=== PATIENT | female | born 1955 | race Caucasian/White ===

== ENCOUNTER 2016-12-02 10:27 | Day surgery (SDC) | payer MEDICAID ==
[~2016-12-02] VITALS: Ht 149.9 cm; Wt 67.6 kg
[~2016-12-02 10:27] MED LIST: ABILIFY10 MG PO; ALDACTONE50 MG PO; DESERYL100 MG PO; ENULOSE10 G/15 ML PO; FISH OIL 1,0001 CA1 PO; FUROSEMIDE20 MG PO; GEODON60 MG PO; GLUCOPHAGE500 MG PO; GLUCOTROL 5 MG T5 MG PO; HYDROCODONE-APA1 TAB PO; INVEGA SUS117 MG/0.7 IM; LANTUS INSULIN10 ML SC; METOPROLOL TART50 MG PO; NORVASC10 MG PO; PRILOSEC20 MG PO; SYNTHROID50 MCG PO; VESICARE5 MG PO; ZESTRIL20 MG PO
[2016-12-02] MEDS ORDERED: GEODON60 MG PO (10:58)
[2016-12-02] MEDS ORDERED: METFORMIN HCL500 M1 PO (10:59)
[2016-12-02] MEDS ORDERED: INVEGA SUS117 MG/0.7 IM (11:01)
[2016-12-02] MEDS ORDERED: LEXAPRO10 MG PO (11:02)
[2016-12-02] MEDS ORDERED: ATIVAN2 MG PO (11:04)
[2016-12-02] MEDS ORDERED: BENADRYL25 MG PO (11:05)
[2016-12-02] MEDS ORDERED: LASIX40 MG PO (11:07)
[2016-12-02] MEDS ORDERED: VESICARE10 MG PO (11:09)
[2016-12-02 11:13] LABS: BASOPHILS 0.2 % (0.0-2.0); EOSINOPHILS 0.7 % (0-7); HEMOGLOBIN 14.2 g/dL (12-16); IMMATURE GRANULOCYTES 0.5 % (0-5); LYMPHOCYTES 14.5 % (15-50); MCH 32.7 pg (26.0-34.0); MCHC 35.5 g/dL (31.0-37.0); MCV 92.2 fL (80.0-100.0); MONOCYTES 11.6 % (2-11); NEUTROPHILS 72.5 % (40-80); RBC 4.34 10x6/uL (4.00-5.40); RDW 12.8 % (11.5-14.5); WBC 5.8 10x3/uL (4.8-10.8)
[2016-12-02 11:16] VITALS: BP 123/61; Ht 149.9 cm; Wt 67.6 kg
[2016-12-02 11:17] LABS: APTT 36.9 SECONDS (22.8-39.4); INR 1.21 (0.85-1.17); PROTIME 15.1 SECONDS (11.6-15.0)
[2016-12-02 11:25] LABS: ALKALINE PHOSPHATASE 173 U/L (46-116); ALT (SGPT) 26 U/L (10-68); BILIRUBIN - TOTAL 0.87 mg/dL (0.2-1.3); CALC OSMOLALITY 249 mosm/kg (275-300); CALCIUM 8.5 mg/dL (8.5-10.1); CARBON DIOXIDE 23.3 mmol/L (21.0-32.0); CHLORIDE - SERUM 91 mmol/L (98-107); CREATININE - SERUM 0.6 mg/dL (0.6-1.3); GLUCOSE 164 mg/dL (74-106); POTASSIUM - SERUM 4.5 mmol/L (3.5-5.1); PROTEIN - SERUM 7.4 g/dL (6.4-8.2); SODIUM 123 mmol/L (136-145); UREA NITROGEN 6 mg/dL (7-18); eGFR NON AFRICAN AMERICAN > 90 mL/min (90-120)
[2016-12-02 11:27] LABS: PLATELET COUNT 118 10x3/uL (130-400)
--- NOTE | 2016-12-08 10:15 | OP ---
PATIENT NAME: FARNAZ LIVE MEDICAL RECORD: [id number] :57 LOCATION:D.OPS ADMISSION DATE: SURGEON: CLAUDIA VALENZUELA DO DATE OF OPERATION: 12/02/2016 PROCEDURE: Colonoscopy with biopsy. SCOPE: Olympus video pediatric colonoscope. MEDICATIONS: Propofol 700 mg IV per anesthesia. INDICATIONS FOR PROCEDURE: Screening colonoscopy with a family history of colon cancer in her mother. FINDINGS: Informed consent was given. The patient was made comfortable with the above medication. After reaching an adequate level of sedation by slow IV push, the patient was placed on her left side. A digital rectal examination was performed and revealed no abnormalities. The scope was then advanced under direct visualization through the rectum to the cecum. This procedure was somewhat difficult as there was some redundancy of the colon, which required counter pressure to prevent looping as well as the prep not being adequate enough to permit a complete well-seen examination. Significant irrigation was performed during the procedure and it is possible that some small polyps could have been missed. There were 2 polyps visualized, which were sessile. The first was in the descending colon and measured approximately 6 mm. It was removed with cold forceps. It was completely retrieved. The second polyp was approximately 6 mm in diameter and was found in the rectum. It was removed with cold forceps as well. These polyps were submitted to pathology. In the cecum, there was also some telangiectasias or ____ malformations. There was a granular and erythematous appearance in the cecum, which was biopsied with cold forceps to rule out colitis. Scope was then withdrawn from the patient. The patient tolerated the procedure well and there were no complications. ESTIMATED BLOOD LOSS: Less than 5 cc. IMPRESSION: 1. 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 2. Granularity and erythema in the cecum, biopsied to rule out colitis. 3. Two sessile polyps, which were removed from the descending colon and rectum with cold forceps. PLAN AND RECOMMENDATIONS: 1. Discharge home when recovery parameters are met. 2. Continue current diet, which should be a low-sodium diet regarding her cirrhosis. 3. Continue current medications. 4. Recall colonoscopy in 3 years based on personal history of polyps in the setting of a family history of colon cancer in her mother. TRANSINT:[id number] Voice Confirmation ID: [id number] DOCUMENT ID: [id number] OPERATIVE REPORT [id number] FARNAZ LIVE NATHAN A DO at 1015 CC: [id number] DICTATION DATE: 12/02/16 1258 TRADESHOW WORKER: 12/02/[address] [facility] 12/02/16 [id number] [place] [address]
== END 2016-12-02 14:30 | disposition home or self-care (01) ==
LOC: D.OPS 10:27
PROVIDERS: Anesthesiology
DX: Z12.11 Encounter for screening for malignant neoplasm of colon (principal); K51.40 Inflammatory polyps of colon without complications; K62.1 Rectal polyp; Q27.33 Arteriovenous malformation of digestive system vessel; Z80.0 Family history of malignant neoplasm of digestive organs

== ENCOUNTER 2016-12-23 09:04 | Emergency (ER) | payer MEDICAID ==
[2016-12-02 11:16] VITALS: BMI 30.1
[~2016-12-23 09:04] MED LIST changes: +ATIVAN2 MG PO; +BENADRYL25 MG PO; +LASIX40 MG PO; +LEXAPRO10 MG PO; +METFORMIN HCL500 M1 PO; +VESICARE10 MG PO
[2016-12-23 09:44] LABS: BASOPHILS 0.2 % (0.0-2.0); EOSINOPHILS 1.3 % (0-7); HEMATOCRIT 40.9 % (36.0-48.0); IMMATURE GRANULOCYTES 0.2 % (0-5); LYMPHOCYTES 13.3 % (15-50); MCH 32.3 pg (26.0-34.0); MCHC 34.2 g/dL (31.0-37.0); MCV 94.2 fL (80.0-100.0); MEAN PLATELET VOLUME 9.9 fL (7.4-10.4); MONOCYTES 12.5 % (2-11); NEUTROPHILS 72.5 % (40-80); PLATELET COUNT 102 10x3/uL (130-400); RBC 4.34 10x6/uL (4.00-5.40); WBC 4.7 10x3/uL (4.8-10.8)
[2016-12-23 09:53] LABS: INR 1.15 (0.85-1.17); PROTIME 14.6 SECONDS (11.6-15.0)
[2016-12-23 09:54] LABS: APTT 35.7 SECONDS (22.8-39.4)
[2016-12-23 09:59] LABS: ALBUMIN 2.8 g/dL (3.4-5.0); ALKALINE PHOSPHATASE 174 U/L (46-116); ALT (SGPT) 24 U/L (10-68); BILIRUBIN - TOTAL 0.57 mg/dL (0.2-1.3); CALC OSMOLALITY 269 mosm/kg (275-300); CALCIUM 8.7 mg/dL (8.5-10.1); CARBON DIOXIDE 29.2 mmol/L (21.0-32.0); CHLORIDE - SERUM 98 mmol/L (98-107); CREATININE - SERUM 0.6 mg/dL (0.6-1.3); GLUCOSE 188 mg/dL (74-106); POTASSIUM - SERUM 4.1 mmol/L (3.5-5.1); PROTEIN - SERUM 7.5 g/dL (6.4-8.2); SODIUM 134 mmol/L (136-145); UREA NITROGEN 5 mg/dL (7-18); eGFR NON AFRICAN AMERICAN > 90 mL/min (90-120)
== END 2016-12-23 10:40 | disposition home or self-care (01) ==
LOC: D.ER 09:04
PROVIDERS: Emergency Medicine
DX: R18.8 Other ascites (principal)

== ENCOUNTER 2017-01-04 11:15 | Outpatient (CLI) | payer MEDICAID ==
[2016-12-02 11:16] VITALS: BMI 30.1
[2017-01-04 12:10] LABS: BASOPHILS 0.2 % (0-2); HEMATOCRIT 40.7 % (36.0-48.0); HEMOGLOBIN 13.9 g/dL (12-16); IMMATURE GRANULOCYTES 0.2 % (0-5); LYMPHOCYTES 15.6 % (15-50); MCHC 34.2 g/dL (31.0-37.0); MCV 93.6 fL (80.0-100.0); MEAN PLATELET VOLUME 9.5 fL (7.4-10.4); MONOCYTES 17.3 % (2-11); NEUTROPHILS 65.7 % (40-80); PLATELET COUNT 119 10x3/uL (130-400); RBC 4.35 10x6/uL (4.00-5.40); RDW 13.4 % (11.5-14.5); WBC 4.2 10x3/uL (4.8-10.8)
[2017-01-04 12:42] LABS: ALBUMIN 2.7 g/dL (3.4-5.0); ALKALINE PHOSPHATASE 210 U/L (46-116); ALT (SGPT) 25 U/L (10-68); AMYLASE - SERUM 28 U/L (25-115); BILIRUBIN - TOTAL 0.47 mg/dL (0.2-1.3); CALC OSMOLALITY 270 mosm/kg (275-300); CALCIUM 8.9 mg/dL (8.5-10.1); CARBON DIOXIDE 32.8 mmol/L (21.0-32.0); CHLORIDE - SERUM 101 mmol/L (98-107); CREATININE - SERUM 0.6 mg/dL (0.6-1.3); LIPASE 126 U/L (73-393); POTASSIUM - SERUM 3.8 mmol/L (3.5-5.1); PROTEIN - SERUM 7.6 g/dL (6.4-8.2); SODIUM 137 mmol/L (136-145); UREA NITROGEN 5 mg/dL (7-18); eGFR NON AFRICAN AMERICAN > 90 mL/min (90-120)
[2017-01-04 12:49] LABS: GLUCOSE 105 mg/dL (74-106)
[2017-01-04 13:09] LABS: APPEARANCE CLEAR (CLEAR); BILIRUBIN NEGATIVE (NEGATIVE); COLOR YELLOW (YELLOW); GLUCOSE NEGATIVE (NEGATIVE); KETONE NEGATIVE (NEGATIVE); LEUKOCYTE ESTERASE NEGATIVE (NEGATIVE); NITRITE NEGATIVE (NEGATIVE); PROTEIN NEGATIVE (NEGATIVE)
[2017-01-04 13:10] LABS: BACTERIA FEW /hpf (NONE SEEN); EPITHELIAL CELLS 0-5 /hpf (0-5); MUCUS <1+ /lpf (NONE SEEN); WHITE CELLS - URINE RARE /hpf (0-5); YEAST <1+ /hpf (NONE SEEN)
[2017-01-04 13:17] LABS: APTT 36.5 SECONDS (22.8-39.4); INR 1.2 (0.85-1.17); PROTIME 15.1 SECONDS (11.6-15.0)
--- NOTE | 2017-01-04 15:00 | NUR ---
RECEIVED FROM IR POST PARACENTESIS. RIGHT ABDOMINAL DRESSING C/D/I. REGULAR DIET SERVED.
--- NOTE | 2017-01-04 15:28 | NUR ---
1500-RECD TO ROOM 2511 FROM INTERVENTIONAL RADIOLOGY. ALERT. ABD DRESSING DRY AND INTACT. ALBUMIN INFUSING TO LEFT HAND IV, SITE WITHOUT REDNESS OR SWELLING. R ABD DRESSING DRY AND INTACT. 1515-FINGER FOOD TRAY SERVED.
--- NOTE | 2017-01-04 17:00 | NUR ---
DISCHARGED HOME VIA WC. SEE FREQUENT VITAL SIGN SHEET FOR VITAL SIGNS. INSTRUCTED ON SEEING HER PCP VEENA CONCERNING HER BLOOD PRESSURE. STATES "MY BLOOD PRESSURE IS ALWAYS HIGH." REINFORCED IMPORTANCE OF SEEING PCP.
--- NOTE | 2017-01-04 17:00 | NUR ---
DISCHARGE INSTRUCTIONS GIVEN. HAS RX FROM ER FOR RASH. DISCHARGED HOME VIA WC.
[2017-01-04 18:46] LABS: LYMPH - BF 46 %; MACROPHAGES BF 43 %; MESOTHELIALS BF 4 %; NEUT - BF 7 %
== END 2017-01-04 17:00 | disposition home or self-care (01) ==
LOC: D.OPS 11:15 → D.RAD 11:15 → D.ER 11:15 → EDSTATUS 14:10 → D.OPS 17:00
PROVIDERS: Emergency Medicine; Specialist
DX: K71.51 Toxic liver disease with chronic active hepatitis with ascites (principal); B19.20 Unspecified viral hepatitis C without hepatic coma; Z01.812 Encounter for preprocedural laboratory examination

== ENCOUNTER → 2017-02-17 11:53 | Day surgery (SDC) | payer MEDICAID ==
[~2017-02-17] VITALS: Ht 149.9 cm; Wt 64.0 kg
--- NOTE | ~2017-02-17 | OP ---
PATIENT NAME: FARNAZ LIVE MEDICAL RECORD: [id number] :57 LOCATION:D.[facility] ADMISSION DATE: SURGEON: CLAUDIA VALENZUELA DO DATE OF OPERATION: 02/17/2017 PROCEDURE: EGD with biopsy. INDICATIONS FOR PROCEDURE: Screening for esophageal varices in the setting of cirrhosis. SCOPE: Phase Focus video gastroscope. MEDICATIONS: Propofol 130 mg IV per anesthesia. ESTIMATED BLOOD LOSS: Minimal. COMPLICATIONS: None. FINDINGS: Informed consent was given. The patient was made comfortable with the above medication. After reaching an adequate level of sedation by slow IV push, the patient was placed on her left side. The endoscope was then advanced under direct visualization through the mouth to the second portion of the duodenum. The upper third of the esophagus appeared normal. In the middle and distal third, there was evidence of some small grade I esophageal varices without bleeding stigmata. No banding was indicated on this procedure today. At the GE junction, there was some LA class B reflux induced esophagitis, which could possibly be Lewis's. Two biopsies were taken of a single tongue to rule out Lewis's. The endoscope was advanced in the stomach and retroflexed to view the cardia, which appeared normal. In the stomach, there was evidence of moderate to severe portal hypertensive gastropathy, which appeared to have hemorrhagic petechiae. There was a demarcation in the distal body to antrum where the mucosa had a normal appearance down to the pylorus. The scope was advanced through the pylorus into the duodenum where there was some evidence of scars from previous ulcerations in the bulb to the first portion of the duodenum. There were no longer any ulcers and this mucosa appears healed. The second portion of the duodenum appeared normal. The scope was withdrawn from the patient. The patient tolerated the procedure well and there were no complications. There was evidence of esophageal candidiasis in the middle third of the esophagus. IMPRESSION: 1. Esophageal candidiasis. 2. Esophageal varices grade I without bleeding stigmata. 3. Reflux esophagitis grade B which is possibly Lewis's, biopsies taken. 4. Moderate to severe portal hypertensive gastropathy with hemorrhagic petechiae. PLAN AND RECOMMENDATIONS: 1. Discharge home when recovery parameters are met. 2. Continue current diet. 3. Continue current medications. 4. Fluconazole 100 mg orally times 21 days for the esophageal candidiasis. 5. Repeat upper endoscopy in 1 year for continued surveillance of varices with banding if indicated. OPERATIVE REPORT [id number] FARNAZ LIVE BELA TRANSINT:[id number] Voice Confirmation ID: [id number] DOCUMENT ID: [id number] CLAUDIA VALENZUELA DO CC: [id number] DICTATION DATE: 02/17/17 153 SPORTS EDITOR: 02/18/17 0119 [facility] 02/17/17 [id number] [place] [id number]
[2017-02-17 13:43] LABS: BASOPHILS 0.4 % (0-2); EOSINOPHILS 3.1 % (0-7); HEMATOCRIT 38.7 % (36.0-48.0); HEMOGLOBIN 13.6 g/dL (12-16); IMMATURE GRANULOCYTES 0.4 % (0-5); LYMPHOCYTES 14.5 % (15-50); MCH 31.8 pg (26.0-34.0); MCHC 35.1 g/dL (31.0-37.0); MCV 90.4 fL (80.0-100.0); MEAN PLATELET VOLUME 9.8 fL (7.4-10.4); MONOCYTES 16.1 % (2-11); NEUTROPHILS 65.5 % (40-80); PLATELET COUNT 119 10x3/uL (130-400); RBC 4.28 10x6/uL (4.00-5.40); RDW 14.5 % (11.5-14.5); WBC 4.8 10x3/uL (4.8-10.8)
[2017-02-17 13:53] LABS: APTT 34.5 SECONDS (22.8-39.4); INR 1.22 (0.85-1.17); PROTIME 15.3 SECONDS (11.6-15.0)
[2017-02-17 14:03] LABS: ALBUMIN 2.7 g/dL (3.4-5.0); ALKALINE PHOSPHATASE 191 U/L (46-116); ALT (SGPT) 25 U/L (10-68); CALC OSMOLALITY 258 mosm/kg (275-300); CALCIUM 8.9 mg/dL (8.5-10.1); CARBON DIOXIDE 26.8 mmol/L (21.0-32.0); CHLORIDE - SERUM 96 mmol/L (98-107); CREATININE - SERUM 0.6 mg/dL (0.6-1.3); GLUCOSE 112 mg/dL (74-106); POTASSIUM - SERUM 4.5 mmol/L (3.5-5.1); PROTEIN - SERUM 7.4 g/dL (6.4-8.2); SODIUM 130 mmol/L (136-145); UREA NITROGEN 5 mg/dL (7-18); eGFR NON AFRICAN AMERICAN > 90 mL/min (90-120)
[2017-02-17 14:17] VITALS: BP 142/59; Ht 149.9 cm; Wt 64.0 kg
== END | disposition home or self-care (01) ==
LOC: D.OPS 11:53
PROVIDERS: Anesthesiology; Internal Medicine Gastroenterology
DX: B37.81 Candidal esophagitis (principal); K74.60 Unspecified cirrhosis of liver; I85.10 Secondary esophageal varices without bleeding; K21.0 Gastro-esophageal reflux disease with esophagitis; K76.6 Portal hypertension; K31.89 Other diseases of stomach and duodenum; Z01.812 Encounter for preprocedural laboratory examination

== ENCOUNTER → 2017-04-19 10:12 | Outpatient (CLI) | payer MEDICAID ==
[2017-02-17 14:17] VITALS: BMI 28.5
== END | disposition home or self-care (01) ==
LOC: D.US 10:12
DX: K74.60 Unspecified cirrhosis of liver (principal)

== ENCOUNTER 2017-09-02 10:25 | Inpatient (IN) | payer MEDICAID ==
[~2017-09-02] VITALS: Ht 149.9 cm; Wt 57.3 kg
[2017-09-02] VITALS (10 sets, daily range): BP systolic 144–196; BP diastolic 57–69; BMI 26.9
--- NOTE | ~2017-09-02 | DS ---
PATIENT:FARNAZ LIVE :57 MEDICAL RECORD: [id number] DISCHARGE SUMMARY ADMISSION DATE: 09/02/17 DISCHARGE DATE: DATE OF ADMISSION: 09/02/2017 DATE OF DISCHARGE: 09/07/2017 ADMISSION DIAGNOSES: Reported GI bleed and acute mental status change reported. DISCHARGE DIAGNOSES: History of esophageal varices, positive Hemoccult positive stool. She has had numerous GI workups, no acute changes. Schizophrenia, depression, and anxiety. HOSPITAL COURSE: The patient was admitted unassigned medicine to the Emergency Room with reported mental status change and heme-positive stool. GI consulted. H&H monitored. No intervention required. The patient was restarted on her home medications. She is back to her baseline. As far as mental status, she has a history of schizophrenia, depression. She is [facility] to her [facility] in stable and improved condition and will follow up with her primary care physician, Dr. Liao and follow up with her psychiatrist. Vital signs on discharge; temp 98.1, blood pressure is 138/50, heart rate 62, respirations 16, O2 sats 99%. The patient is alert, oriented, dressed, anxious to go, no acute distress. Answers appropriately. Please see chart for further details. TRANSINT:[id number] Voice Confirmation ID: [id number] DOCUMENT ID: [id number] LACI MCDOWELL DO at 0730 CC: [id number] DICTATION DATE: 09/07/17 0829 PHILOSOPHY PROFESSOR: 09/07/17 1054 ADM IN [id number] [place] [address]
--- NOTE | ~2017-09-02 | HP ---
PATIENT: FARNAZ LIVE MEDICAL RECORD: [id number] ACCOUNT: [id number] LOCATION:.[facility] D.2305 : 57 ADMISSION DATE: 09/02/17 HISTORY AND PHYSICAL EXAMINATION HISTORY OF PRESENT ILLNESS: A 62-year-old female brought in to the Emergency Room with reported acute mental status change and reported GI bleeding. The patient is unable to give any significant interview. She has a history of psychiatric disorder. She has a history of chronic GI problems, has had multiple endoscopies, was a recent patient at [facility], was found to be significantly anemic and was transferred to [facility], underwent EGD, and was transfused and discharged. EGD showed esophageal varices, no intervention was performed at that time. REVIEW OF SYSTEMS: Unobtainable due to the patient nonsensical conversation. She does have a history of depression, schizophrenia, and anxiety. MEDICATIONS: Reviewed and as per chart. PHYSICAL EXAMINATION: VITAL SIGNS: Temp 98.1, blood pressures 178/69, heart rate 73, respirations 19, O2 sat is 96%. GENERAL: Alert to person. HEENT: Normocephalic, atraumatic. Eyes: Reactive. Ears: Canals patent. Nose: Nares patent. Throat: No erythema, no exudates. NECK: Supple. No lymphadenopathy, no JVD. HEART: Regular rate and rhythm. LUNGS: Clear. ABDOMEN: Soft, mild distention with ascites. EXTREMITIES: Present times 4. NEUROLOGIC: Limited exam, but no appreciable focal deficits. LABORATORY DATA: CBC: White count 4.7, hemoglobin 9.1, hematocrit 27.4, platelets 144. INR is 1.19. PT is 14.7. Chemistry shows a sodium of 130, potassium 4.0, chloride 97, bicarbonate 27.7, BUN 9, creatinine 0.6, glucose 134. Ammonia is 32. GI consulted. CT of the head, no acute pathology. ASSESSMENT AND PLAN: 1. Reported gastrointestinal bleed, stool heme positive, recent records indicate improved H&H, we will monitor H&H. Gastrointestinal consulted. 2. Ascites, interventional radiology consulted for paracentesis and evaluation for subacute bacterial peritonitis. Antibiotics started. 3. Depression, schizophrenia. Continue home medications. 4. Diabetes mellitus. Sliding scale insulin. Supportive care. We will also consult case packer for placement and discharge planning. TRANSINT:[id number] Voice Confirmation ID: [id number] DOCUMENT ID: [id number] HISTORY AND PHYSICAL [id number] AFRNAZ LIVE ROBERT DO at 0721 CC: [id number] DICTATION DATE: 09/02/171932 FOOT ROENTGENOLOGIST: 09/02/172104 ADM IN [facility] [address] [id number]
[2017-09-02 12:01] LABS: BASOPHILS 0.2 % (0-2); EOSINOPHILS 1.1 % (0-7); HEMATOCRIT 27.4 % (36.0-48.0); HEMOGLOBIN 9.1 g/dL (12-16); IMMATURE GRANULOCYTES 0.4 % (0-5); MCH 30.3 pg (26.0-34.0); MCHC 33.2 g/dL (31.0-37.0); MCV 91.3 fL (80.0-100.0); MEAN PLATELET VOLUME 9.4 fL (7.4-10.4); MONOCYTES 11.4 % (2-11); NEUTROPHILS 74.9 % (40-80); RDW 15.4 % (11.5-14.5); WBC 4.7 10x3/uL (4.8-10.8)
[2017-09-02 12:04] LABS: PLATELET COUNT 144 10x3/uL (130-400)
[2017-09-02 12:08] LABS: ALKALINE PHOSPHATASE 176 U/L (46-116); ALT (SGPT) 50 U/L (10-68); BILIRUBIN - TOTAL 0.51 mg/dL (0.2-1.3); CALC OSMOLALITY 261 mosm/kg (275-300); CALCIUM 8.7 mg/dL (8.5-10.1); CARBON DIOXIDE 27.7 mmol/L (21.0-32.0); CHLORIDE - SERUM 97 mmol/L (98-107); CREATININE - SERUM 0.6 mg/dL (0.6-1.3); GLUCOSE 134 mg/dL (74-106); PROTEIN - SERUM 6.5 g/dL (6.4-8.2); SODIUM 130 mmol/L (136-145); UREA NITROGEN 9 mg/dL (7-18); eGFR NON AFRICAN AMERICAN > 90 mL/min (90-120)
[2017-09-02 12:09] LABS: INR 1.19 (0.85-1.17); PROTIME 14.7 SECONDS (11.6-15.0)
[2017-09-02 12:10] LABS: TROPONIN-I 0.037 ng/mL (0.000-0.060)
[2017-09-02 12:47] LABS: UDS - AMPHET NEGATIVE QUAL (NEGATIVE); UDS - BARB NEGATIVE QUAL (NEGATIVE); UDS - BENZO NEGATIVE QUAL (NEGATIVE); UDS - COCAINE NEGATIVE QUAL (NEGATIVE); UDS - OPIATE NEGATIVE QUAL (NEGATIVE); UDS - PCP NEGATIVE QUAL (NEGATIVE); UDS - THC NEGATIVE QUAL (NEGATIVE)
[2017-09-02 12:49] LABS: APPEARANCE CLEAR (CLEAR); BACTERIA FEW /hpf (NONE SEEN); BILIRUBIN NEGATIVE (NEGATIVE); COLOR YELLOW (YELLOW); EPITHELIAL CELLS RARE /hpf (0-5); GLUCOSE NEGATIVE (NEGATIVE); KETONE NEGATIVE (NEGATIVE); NITRITE NEGATIVE (NEGATIVE); PROTEIN NEGATIVE (NEGATIVE); RED CELLS - URINE RARE /hpf (0-5); WHITE CELLS - URINE OCC /hpf (0-5)
[2017-09-02 15:00] LABS: HEMATOCRIT 28.9 % (36.0-48.0); HEMOGLOBIN 9.7 g/dL (12-16)
[2017-09-03] VITALS (16 sets, daily range): BP systolic 154–204; BP diastolic 53–76; Ht 149.9 cm; Wt 57.3 kg
[2017-09-03 04:01] LABS: BASOPHILS 0 % (0-2); EOSINOPHILS 0.9 % (0-7); IMMATURE GRANULOCYTES 0.3 % (0-5); LYMPHOCYTES 13.2 % (15-50); MCH 30.1 pg (26.0-34.0); MCHC 33.3 g/dL (31.0-37.0); MCV 90.3 fL (80.0-100.0); MEAN PLATELET VOLUME 9.1 fL (7.4-10.4); MONOCYTES 17.9 % (2-11); NEUTROPHILS 67.7 % (40-80); PLATELET COUNT 123 10x3/uL (130-400); RBC 2.99 10x6/uL (4.00-5.40); RDW 15.3 % (11.5-14.5); WBC 3.2 10x3/uL (4.8-10.8)
[2017-09-03 04:30] LABS: ALBUMIN 1.9 g/dL (3.4-5.0); ALKALINE PHOSPHATASE 168 U/L (46-116); ALT (SGPT) 43 U/L (10-68); BILIRUBIN - TOTAL 0.58 mg/dL (0.2-1.3); CALC OSMOLALITY 262 mosm/kg (275-300); CALCIUM 8.3 mg/dL (8.5-10.1); CARBON DIOXIDE 26.2 mmol/L (21.0-32.0); CHLORIDE - SERUM 98 mmol/L (98-107); CREATININE - SERUM 0.6 mg/dL (0.6-1.3); GLUCOSE 176 mg/dL (74-106); MAGNESIUM - SERUM 1.5 mg/dL (1.8-2.4); PHOSPHOROUS 3.5 mg/dL (2.5-4.9); POTASSIUM - SERUM 4.1 mmol/L (3.5-5.1); PROTEIN - SERUM 6.5 g/dL (6.4-8.2); SODIUM 130 mmol/L (136-145); UREA NITROGEN 8 mg/dL (7-18); eGFR NON AFRICAN AMERICAN > 90 mL/min (90-120)
[2017-09-03 12:58] LABS: HEMOGLOBIN 9.6 g/dL (12-16)
[2017-09-03 18:29] LABS: HEMATOCRIT 28.2 % (36.0-48.0); HEMOGLOBIN 9.4 g/dL (12-16)
[2017-09-04 00:30] VITALS: BP 159/50
[2017-09-04 06:45] LABS: BASOPHILS 0.3 % (0-2); EOSINOPHILS 0.8 % (0-7); HEMATOCRIT 29.9 % (36.0-48.0); HEMOGLOBIN 9.9 g/dL (12-16); LYMPHOCYTES 14.2 % (15-50); MCH 29.6 pg (26.0-34.0); MCHC 33.1 g/dL (31.0-37.0); MCV 89.5 fL (80.0-100.0); NEUTROPHILS 68.7 % (40-80); PLATELET COUNT 120 10x3/uL (130-400); RBC 3.34 10x6/uL (4.00-5.40); RDW 15.4 % (11.5-14.5); WBC 3.9 10x3/uL (4.8-10.8)
[2017-09-04 07:17] LABS: ALBUMIN 2.1 g/dL (3.4-5.0); ALKALINE PHOSPHATASE 193 U/L (46-116); ALT (SGPT) 50 U/L (10-68); BILIRUBIN - TOTAL 0.77 mg/dL (0.2-1.3); CALC OSMOLALITY 264 mosm/kg (275-300); CALCIUM 8.7 mg/dL (8.5-10.1); CARBON DIOXIDE 27.8 mmol/L (21.0-32.0); CHLORIDE - SERUM 99 mmol/L (98-107); CREATININE - SERUM 0.6 mg/dL (0.6-1.3); GLUCOSE 160 mg/dL (74-106); POTASSIUM - SERUM 4.3 mmol/L (3.5-5.1); PROTEIN - SERUM 6.9 g/dL (6.4-8.2); SODIUM 132 mmol/L (136-145); UREA NITROGEN 4 mg/dL (7-18); eGFR NON AFRICAN AMERICAN > 90 mL/min (90-120)
[2017-09-04 08:00] VITALS: BP 163/50
[2017-09-04 12:00] VITALS: BP 153/41
[2017-09-05] VITALS: BP 183/54
[2017-09-05 05:37] LABS: BASOPHILS 0 % (0-2); HEMATOCRIT 29.1 % (36.0-48.0); HEMOGLOBIN 9.7 g/dL (12-16); IMMATURE GRANULOCYTES 0.3 % (0-5); MCH 29.6 pg (26.0-34.0); MCHC 33.3 g/dL (31.0-37.0); MCV 88.7 fL (80.0-100.0); MEAN PLATELET VOLUME 9.3 fL (7.4-10.4); MONOCYTES 16.9 % (2-11); NEUTROPHILS 68.8 % (40-80); PLATELET COUNT 115 10x3/uL (130-400); RBC 3.28 10x6/uL (4.00-5.40); RDW 15.2 % (11.5-14.5); WBC 3.8 10x3/uL (4.8-10.8)
[2017-09-05 06:20] VITALS: BP 184/65
[2017-09-05 06:33] LABS: ALBUMIN 2.3 g/dL (3.4-5.0); ALKALINE PHOSPHATASE 199 U/L (46-116); ALT (SGPT) 46 U/L (10-68); BILIRUBIN - TOTAL 0.79 mg/dL (0.2-1.3); CALC OSMOLALITY 264 mosm/kg (275-300); CALCIUM 8.5 mg/dL (8.5-10.1); CARBON DIOXIDE 25.9 mmol/L (21.0-32.0); CHLORIDE - SERUM 96 mmol/L (98-107); CREATININE - SERUM 0.6 mg/dL (0.6-1.3); GLUCOSE 204 mg/dL (74-106); MAGNESIUM - SERUM 1.6 mg/dL (1.8-2.4); PHOSPHOROUS 3.4 mg/dL (2.5-4.9); PROTEIN - SERUM 6.7 g/dL (6.4-8.2); SODIUM 130 mmol/L (136-145); THYROID STIMULATING HORMONE 12.95 uIU/mL (0.36-3.74); eGFR NON AFRICAN AMERICAN > 90 mL/min (90-120)
[2017-09-05 06:35] LABS: UREA NITROGEN 6 mg/dL (7-18)
[2017-09-05 08:12] VITALS: BP 130/68
[2017-09-05 11:30] VITALS: BP 142/72
[2017-09-05 15:40] VITALS: BP 108/78
[2017-09-05 21:52] VITALS: BP 181/52
[2017-09-06 00:52] VITALS: BP 138/40
[2017-09-06 05:26] LABS: BASOPHILS 0.3 % (0-2); EOSINOPHILS 1.4 % (0-7); HEMATOCRIT 28.7 % (36.0-48.0); HEMOGLOBIN 9.6 g/dL (12-16); IMMATURE GRANULOCYTES 0.3 % (0-5); LYMPHOCYTES 13.8 % (15-50); MCH 29.5 pg (26.0-34.0); MCHC 33.4 g/dL (31.0-37.0); MCV 88.3 fL (80.0-100.0); MEAN PLATELET VOLUME 9.1 fL (7.4-10.4); MONOCYTES 14.9 % (2-11); NEUTROPHILS 69.3 % (40-80); PLATELET COUNT 104 10x3/uL (130-400); RBC 3.25 10x6/uL (4.00-5.40); RDW 15.2 % (11.5-14.5); WBC 3.7 10x3/uL (4.8-10.8)
[2017-09-06 05:39] LABS: CALC OSMOLALITY 261 mosm/kg (275-300); CALCIUM 9.1 mg/dL (8.5-10.1); CARBON DIOXIDE 28.9 mmol/L (21.0-32.0); CHLORIDE - SERUM 95 mmol/L (98-107); CREATININE - SERUM 0.6 mg/dL (0.6-1.3); GLUCOSE 184 mg/dL (74-106); SODIUM 129 mmol/L (136-145); eGFR NON AFRICAN AMERICAN > 90 mL/min (90-120)
[2017-09-06 05:41] LABS: UREA NITROGEN 8 mg/dL (7-18)
[2017-09-06 07:25] VITALS: BP 156/58
[2017-09-06 08:00] VITALS: BP 147/56
[2017-09-06 12:03] VITALS: BP 141/48
[2017-09-06 19:00] VITALS: BP 147/44
[2017-09-07] VITALS: BP 119/70; BP 138/50
[2017-09-07 04:00] VITALS: BP 185/48
[2017-09-07 06:06] LABS: BASOPHILS 0.2 % (0-2); EOSINOPHILS 1.4 % (0-7); HEMATOCRIT 29.5 % (36.0-48.0); HEMOGLOBIN 9.8 g/dL (12-16); IMMATURE GRANULOCYTES 0.2 % (0-5); LYMPHOCYTES 11.7 % (15-50); MCH 29.3 pg (26.0-34.0); MCHC 33.2 g/dL (31.0-37.0); MCV 88.3 fL (80.0-100.0); MEAN PLATELET VOLUME 9.9 fL (7.4-10.4); MONOCYTES 14.4 % (2-11); NEUTROPHILS 72.1 % (40-80); PLATELET COUNT 117 10x3/uL (130-400); RBC 3.34 10x6/uL (4.00-5.40); RDW 15.1 % (11.5-14.5); WBC 4.4 10x3/uL (4.8-10.8)
[2017-09-07 06:33] LABS: CALCIUM 8.9 mg/dL (8.5-10.1); CARBON DIOXIDE 28.7 mmol/L (21.0-32.0); CHLORIDE - SERUM 92 mmol/L (98-107); GLUCOSE 202 mg/dL (74-106); POTASSIUM - SERUM 3.9 mmol/L (3.5-5.1); SODIUM 127 mmol/L (136-145); eGFR NON AFRICAN AMERICAN 77 mL/min (90-120)
[2017-09-07 06:36] LABS: CALC OSMOLALITY 260 mosm/kg (275-300); CREATININE - SERUM 0.8 mg/dL (0.6-1.3); UREA NITROGEN 13 mg/dL (7-18)
[2017-09-07 08:05] VITALS: BP 140/84
[2017-09-07 12:58] VITALS: BP 135/52
[2017-09-07 17:23] VITALS: BP 152/41
[2017-09-07 19:00] VITALS: BP 183/60
[2017-09-08 04:00] VITALS: BP 132/41
[2017-09-08 09:03] VITALS: BP 131/87
[2017-09-08 13:25] VITALS: BP 133/48
== END 2017-09-08 15:21 | disposition home or self-care (01) | DRG 442 ==
LOC: D.ER 10:25 → D.ICU 14:30 → D.M2 09-03 22:40
PROVIDERS: Emergency Medicine; Family Medicine; Internal Medicine Gastroenterology
DX: K72.90 Hepatic failure, unspecified without coma (principal); F05 Delirium due to known physiological condition; R18.8 Other ascites; E87.1 Hypo-osmolality and hyponatremia; K76.6 Portal hypertension; D64.9 Anemia, unspecified; F25.0 Schizoaffective disorder, bipolar type; E11.9 Type 2 diabetes mellitus without complications; E03.9 Hypothyroidism, unspecified; I10 Essential (primary) hypertension; Z87.891 Personal history of nicotine dependence; K31.89 Other diseases of stomach and duodenum; K74.60 Unspecified cirrhosis of liver

== ENCOUNTER 2017-10-08 13:05 | Inpatient (IN) | payer MEDICAID ==
[~2017-10-08] VITALS: Ht 149.9 cm; Wt 64.5 kg
[2017-10-08 14:12] LABS: BASOPHILS 0 % (0-2); EOSINOPHILS 1.3 % (0-7); HEMOGLOBIN 8.5 g/dL (12-16); IMMATURE GRANULOCYTES 0.3 % (0-5); MCH 26.5 pg (26.0-34.0); MCHC 31.5 g/dL (31.0-37.0); MCV 84.1 fL (80.0-100.0); MEAN PLATELET VOLUME 9.5 fL (7.4-10.4); MONOCYTES 18.7 % (2-11); NEUTROPHILS 66.7 % (40-80); PLATELET COUNT 110 10x3/uL (130-400); RBC 3.21 10x6/uL (4.00-5.40); RDW 16.5 % (11.5-14.5); WBC 3.9 10x3/uL (4.8-10.8)
[2017-10-08 14:30] LABS: ALBUMIN 2.2 g/dL (3.4-5.0); ALKALINE PHOSPHATASE 175 U/L (46-116); ALT (SGPT) 21 U/L (10-68); BILIRUBIN - TOTAL 0.29 mg/dL (0.2-1.3); CALC OSMOLALITY 269 mosm/kg (275-300); CALCIUM 8.6 mg/dL (8.5-10.1); CARBON DIOXIDE 28.7 mmol/L (21.0-32.0); CHLORIDE - SERUM 97 mmol/L (98-107); CREATININE - SERUM 0.6 mg/dL (0.6-1.3); GLUCOSE 234 mg/dL (74-106); POTASSIUM - SERUM 4.5 mmol/L (3.5-5.1); SODIUM 131 mmol/L (136-145); UREA NITROGEN 11 mg/dL (7-18); eGFR NON AFRICAN AMERICAN > 90 mL/min (90-120)
[2017-10-08 14:38] LABS: AMYLASE - SERUM 24 U/L (25-115); LIPASE 126 U/L (73-393); PRO BNP 99 pg/mL (0-125); TROPONIN-I 0.018 ng/mL (0.000-0.060)
[2017-10-08 16:50] LABS: APPEARANCE CLEAR (CLEAR); BILIRUBIN NEGATIVE (NEGATIVE); COLOR YELLOW (YELLOW); GLUCOSE NEGATIVE (NEGATIVE); KETONE NEGATIVE (NEGATIVE); NITRITE NEGATIVE (NEGATIVE); PROTEIN NEGATIVE (NEGATIVE); UROBILINOGEN NORMAL (NORMAL)
[2017-10-08 20:07] LABS: BASOPHILS 0.3 % (0-2); EOSINOPHILS 1.8 % (0-7); HEMATOCRIT 27.9 % (36.0-48.0); HEMOGLOBIN 8.7 g/dL (12-16); IMMATURE GRANULOCYTES 0.3 % (0-5); MCH 26.3 pg (26.0-34.0); MCHC 31.2 g/dL (31.0-37.0); MCV 84.3 fL (80.0-100.0); NEUTROPHILS 63.6 % (40-80); PLATELET COUNT 107 10x3/uL (130-400); RBC 3.31 10x6/uL (4.00-5.40); RDW 16.5 % (11.5-14.5); WBC 3.3 10x3/uL (4.8-10.8)
[2017-10-08 22:45] VITALS: BP 142/62
[2017-10-08 22:53] LABS: BASOPHILS 0.3 % (0-2); EOSINOPHILS 1.5 % (0-7); HEMATOCRIT 28.3 % (36.0-48.0); HEMOGLOBIN 8.9 g/dL (12-16); IMMATURE GRANULOCYTES 0.3 % (0-5); LYMPHOCYTES 19.8 % (15-50); MCH 26.5 pg (26.0-34.0); MCHC 31.4 g/dL (31.0-37.0); MCV 84.2 fL (80.0-100.0); MEAN PLATELET VOLUME 10.1 fL (7.4-10.4); MONOCYTES 20.1 % (2-11); PLATELET COUNT 111 10x3/uL (130-400); RBC 3.36 10x6/uL (4.00-5.40); RDW 16.4 % (11.5-14.5); WBC 3.3 10x3/uL (4.8-10.8)
[2017-10-08 23:00] VITALS: BP 128/57
[2017-10-08 23:08] VITALS: BP 142/62; BMI 28.7
[2017-10-09] VITALS (12 sets, daily range): BP systolic 114–151; BP diastolic 37–89; Ht 149.9 cm; Wt 64.5 kg
[2017-10-09 02:19] LABS: BASOPHILS 0.3 % (0-2); EOSINOPHILS 1.9 % (0-7); HEMATOCRIT 28.2 % (36.0-48.0); HEMOGLOBIN 8.8 g/dL (12-16); IMMATURE GRANULOCYTES 0.3 % (0-5); LYMPHOCYTES 20.7 % (15-50); MCH 26.3 pg (26.0-34.0); MCHC 31.2 g/dL (31.0-37.0); MCV 84.4 fL (80.0-100.0); MEAN PLATELET VOLUME 9.4 fL (7.4-10.4); MONOCYTES 18.2 % (2-11); NEUTROPHILS 58.6 % (40-80); PLATELET COUNT 107 10x3/uL (130-400); RBC 3.34 10x6/uL (4.00-5.40); RDW 16.5 % (11.5-14.5); WBC 3.1 10x3/uL (4.8-10.8)
[2017-10-09 07:00] LABS: BASOPHILS 0.3 % (0-2); EOSINOPHILS 2.1 % (0-7); HEMATOCRIT 27.6 % (36.0-48.0); HEMOGLOBIN 8.7 g/dL (12-16); LYMPHOCYTES 19.9 % (15-50); MCH 26.5 pg (26.0-34.0); MCHC 31.5 g/dL (31.0-37.0); MCV 84.1 fL (80.0-100.0); MEAN PLATELET VOLUME 9.8 fL (7.4-10.4); MONOCYTES 16.2 % (2-11); NEUTROPHILS 61.5 % (40-80); PLATELET COUNT 120 10x3/uL (130-400); RBC 3.28 10x6/uL (4.00-5.40); RDW 16.6 % (11.5-14.5); WBC 2.9 10x3/uL (4.8-10.8)
[2017-10-09] MEDS ORDERED: PROTONIX40 MG PO ×2 (10:03→10:04)
== END 2017-10-09 11:15 | disposition home or self-care (01) | DRG 812 ==
LOC: D.ER 13:05 → D.ICU 20:30
PROVIDERS: Emergency Medicine; Family Medicine
DX: D64.9 Anemia, unspecified (principal); K92.0 Hematemesis; B19.20 Unspecified viral hepatitis C without hepatic coma; K74.60 Unspecified cirrhosis of liver; F32.9 Major depressive disorder, single episode, unspecified; F25.9 Schizoaffective disorder, unspecified; I10 Essential (primary) hypertension; E11.9 Type 2 diabetes mellitus without complications; Z79.4 Long term (current) use of insulin; Z72.0 Tobacco use